=== PATIENT | female | born 1995 | race Hispanic/Latino ===

== ENCOUNTER 2016-10-26 17:55 | Observation (INO) | payer BC ==
[2016-10-26 18:09] VITALS: TEMP 97.8; O2SAT 100
[2016-10-26] MEDS ORDERED: Sodium Chloride 0.9% 1,000 ML IV STA (18:28)
[2016-10-26] MEDS ORDERED: Dextrose 5%/Lactated Ringer's 1,000 ML IV SCH (18:30)
[2016-10-26] MEDS ORDERED: DiphenhydrAMINE 50 mg/ml Inj IVP STA (18:31)
[2016-10-26] MEDS ORDERED: DiphenhydrAMINE 50 mg/ml Inj ONE (18:39)
[2016-10-26 18:52] LABS: BASO % 0.2 % (0.0-2.0); HEMATOCRIT 42.1 % (34.0-47.0); LYMPH # 0.9 K/uL (1.0-4.3); LYMPH % 7.3 % (20.0-40.0); MEAN CELL VOLUME 86.1 fl (81.0-99.0); MEAN CORPUSCULAR HEMOGLOBIN 28.2 pg (27.0-31.0); MEAN CORPUSCULAR HGB CONC 32.7 g/dL (33.0-37.0); MEAN PLATELET VOLUME 9.2 fl (7.2-11.7); MONO # 0.6 K/uL (0.0-0.8); MONO % 5.2 % (0.0-10.0); NEUT # 10.7 K/uL (1.8-7.0); NEUT % 87.3 % (50.0-75.0); PLATELET COUNT 284 K/uL (130-400); WHITE BLOOD COUNT 12.2 K/uL (4.8-10.8)
[2016-10-26 19:02] LABS: ALB/GLOB RATIO 1.5 (1.0-2.1); ALKALINE PHOSPHATASE 85 U/L (38-126); ALT/SGPT 28 U/L (9-52); AST/SGOT 45 U/L (14-36); BLOOD UREA NITROGEN 11 mg/dl (7-17); CALCIUM 9.8 mg/dL (8.4-10.2); CARBON DIOXIDE 20 mmol/L (22-30); CHLORIDE 106 mmol/L (98-107); GFR AFRICAN-AMERICAN > 60; GLUCOSE,RANDOM 84 mg/dL (65-105); LIPASE 57 U/L (23-300); MAGNESIUM 1.7 MG/DL (1.6-2.3); PHOSPHOROUS 4.5 mg/dl (2.5-4.5); SODIUM 139 mmol/l (132-148); TOTAL PROTEIN 8.4 G/DL (6.3-8.2)
[2016-10-26 19:41] LABS: NEUTROPHIL 84 % (42-75); TOTAL CELLS COUNTED 100
--- NOTE | 2016-10-26 19:55 | ED PDOC ---
HPI: Abdomen Time Seen by Provider: 10/26/16 18:15 Chief Complaint (Nursing): GI Problem Chief Complaint (Provider): GI problem History Per: Patient History/Exam Limitations: no limitations Onset/Duration Of Symptoms: Hrs (15x hours) Outside of [place] travel?: No Current Symptoms Are (Timing): Still Present Severity: Moderate Location Of Pain/Discomfort: Suprapubic Quality Of Discomfort: Cramping Associated Symptoms: Nausea, Vomiting (bilious), Diarrhea (all water) Additional Complaint(s): 21 year old female with no pertinent medical history presents to the ED with complaints of vomiting and diarrhea that started 15x hours prior to arrival. She reports that last night the last thing had to eat was an avocado roll and she woke up in the middle of the night today at 4:30am with diarrhea and intractable vomiting soon after. She describes the greenish yellow, non bloody diarrhea as all water and she has had some bilious vomiting. She is unable to tolerate any PO (including water) and has associated symptoms of lower abdominal cramping pain and lightheada. She also thinks that she passed out today, after an episode of vomiting, she lied down and didn't remember what happened when she woke up. She denies having any recent travel, sick contacts, or antibiotics. Past Medical History Reviewed: Historical Data, Nursing Documentation, Vital Signs Vital Signs: Last Vital Signs Temp 97.8 F 10/26/16 18:07 Pulse 79 10/26/16 23:36 Resp 16 10/26/16 23:36 BP 111/72 10/26/16 23:36 Pulse Ox 100 10/26/16 20:54 - Medical History PMH: No Chronic Diseases - Surgical History Surgical History: No Surg Hx - Family History Family History: States: Other - Social History Current smoker - smoking cessation education provided: No Alcohol: None Drugs: Cannabis (occasionally) - Home Medications Home Medications: Ambulatory Orders Medication Instructions Recorded Dicyclomine [Bentyl] 20 mg PO BID PRN #30 tab 10/26/16 Ondansetron ODT [Zofran ODT] 1 odt PO Q6 PRN #20 odt 10/26/16 - Allergies Allergies/Adverse Reactions: Allergies Allergy/AdvReac Type Severity Reaction Status Date / Time latex Allergy ITCHING Verified 10/26/16 18:07 Review of Systems ROS Statement: Except As Marked, All Systems Reviewed And Found Negative Cardiovascular: Positive for: Light Headedness Gastrointestinal: Positive for: Nausea, Vomiting (some bilious vomit), Abdominal Pain (lower cramping), Diarrhea (greenish yellow, all water) Physical Exam - Reviewed Nursing Documentation Reviewed: Yes Vital Signs Reviewed: Yes - Physical Exam Appears: Positive for: Non-toxic, In Acute Distress (mild gastrointestinal distress). Negative for: Well (tired appearing) Skin: Positive for: Normal Color, Warm, Dry Eye Exam: Positive for: Normal appearance ENT: Positive for: Pharynx Is (clear), Other (tacky mucous membranes) Neck: Positive for: Normal Cardiovascular/Chest: Positive for: Regular Rate, Rhythm Respiratory: Positive for: Normal Breath Sounds. Negative for: Respiratory Distress Gastrointestinal/Abdominal: Positive for: Soft, Tenderness (mild suprapubic tenderness to palpation. negative mcburneys point. otherwise soft.). Negative for: Mass, Distended, Guarding, Rebound Neurologic/Psych: Positive for: Alert, Oriented (3x) - Laboratory Results Result Diagrams: 10/26/16 18:35 10/26/16 18:35 - ECG O2 Sat by Pulse Oximetry: 100 (RA) Pulse Ox Interpretation: Normal Medical Decision Making Medical Decision Makin:15 Initial impression: 21 year old female with abdominal pain. Differential diagnoses include but are not limited to dehydration, vomiting and diarrhea. Initial plan: * CMP * lipase * magnesium * phosphorous * urine preg * udip * CBC * benadryl 25mg IVP * after LR bolus 1,000ml IV 200mls/hr * IV NS 1,000ml IV 1,000ms/hr * pepcid 20mg IVP * phenergan inj 25mg IVPB * zofran 8mg IV * accucheck * reevaluation 18:21 Patient is being placed into ED observation pending serial abdominal examination with a large IV bolus to determine patient's stability for disposition. See ED observation note for further updates. Scribe Attestation: Documented by Sheyla Camargo, acting as a scribe for Selene Echavarria MD. Provider Scribe Attestation: All medical record entries made by the Scribe were at my direction and personally dictated by me. I have reviewed the chart and agree that the record accurately reflects my personal performance of the history, physical exam, medical decision making, and the department course for this patient. I have also personally directed, reviewed, and agree with the discharge instructions and disposition. ED OBSERVATION Date of observation admission: 10/26/16 Time of observation admission: 18:21 - Observation admission statement Patient is being placed in observation because:: Need for serial abdominal examinations to determine stability for discharge. - Goals of Observation Goals of observation are:: resolution of symptoms. - Progress Note Progress Note: 10/26/16 18:35 udip: high specific gravity 80 ketones negative for leukocytes 2130 Pt feeling better. Mildly elevated WBCs, otherwise no clinically significant lab abnormalities Minimal suprapubic ttp. 2330 Tolerated PO challenge and appears more comfortable and eager to go home. DW pt findings and plan of care. Rest, fluids, very bland diet Zofran, Bentyl prescribed. Disposition - Clinical Impression Clinical Impression: Vomiting and diarrhea, Dehydration Counseled Patient/Family Regarding: Studies Performed, Diagnosis, Need For Followup, Rx Given - Disposition Disposition: Routine/Home Disposition Time: 18:20 Condition: IMPROVED
[2016-10-26 23:37] VITALS: BP 111/72; PULSE 79; RESP 16
== END 2016-10-26 23:35 | disposition home or self-care (01) ==
LOC: H.ER 17:55 → H.EROBSV 18:21
PROVIDERS: ADMIT Emergency Medicine; ATTEND Emergency Medicine
DX: E86.0 Dehydration (principal); R11.2 Nausea with vomiting, unspecified; R19.7 Diarrhea, unspecified; Z91.040 Latex allergy status
CPT/HCPCS: 80053; 81025; 82948; 83690; 83735; 84100; 85025; 96361; 96374; 96375; 99283; G0378; J1200; J2405; J2550; J7040; J7120

== ENCOUNTER 2016-11-05 18:07 | Emergency (ER) | payer BC ==
[2016-11-05 18:18] VITALS: BP 128/65; PULSE 83; RESP 20; TEMP 99.1; O2SAT 98
[2016-11-05] MEDS ORDERED: Amoxicillin-Clav 875-125 mg Tab PO STA (18:19)
[2016-11-05] MEDS ORDERED: Piperacillin/Tazobact 3.375 GM in Sodium Chloride 0.9% 100 ML IVPB STA (18:25)
[2016-11-05] MEDS ORDERED: TDAP Vaccine 0.5 mL Syr IM ONE (18:26)
[2016-11-05] MEDS ORDERED: Piperacillin/Tazobact 3.375 gm Inj IVPB ONE (18:34)
--- NOTE | 2016-11-05 18:46 | ED PDOC ---
HPI: Skin/Bite Injury Time Seen by Provider: 11/05/16 18:10 Chief Complaint (Nursing): Bite Chief Complaint (Provider): bite History Per: Patient History/Exam Limitations: no limitations Onset/Duration Of Symptoms: Hrs (earlier today ) Current Symptoms Are (Timing): Still Present Additional Complaint(s): Nathlaia Ruiz is a 21 year old female, with no previous medical history, who presents to the ED with complaints of right hand pain ongoing since this morning secondary to being bit and scratched by a cat. Patient reports pain worsening throughout the day and radiating up to her arm but denies any swelling. PMD: none provided Past Medical History Reviewed: Historical Data, Nursing Documentation, Vital Signs Vital Signs: Last Vital Signs Temp 99.1 F 11/05/16 18:14 Pulse 83 11/05/16 18:14 Resp 20 11/05/16 18:14 BP 128/65 11/05/16 18:14 Pulse Ox 98 11/05/16 19:34 - Medical History PMH: No Chronic Diseases - Surgical History Surgical History: No Surg Hx - Family History Family History: States: Unknown Family Hx - Home Medications Home Medications: Ambulatory Orders Medication Instructions Recorded Dicyclomine [Bentyl] 20 mg PO BID PRN #30 tab 10/26/16 Ondansetron ODT [Zofran ODT] 1 odt PO Q6 PRN #20 odt 10/26/16 Amoxicillin/Clavulanate [Augmentin 1 tab PO BID #14 tab 11/05/16 875 MG-125 MG] Ibuprofen [Motrin] 600 mg PO Q8 PRN #21 tab 11/05/16 - Allergies Allergies/Adverse Reactions: Allergies Allergy/AdvReac Type Severity Reaction Status Date / Time latex Allergy ITCHING Verified 10/26/16 18:07 Review of Systems ROS Statement: Except As Marked, All Systems Reviewed And Found Negative Constitutional: Negative for: Fever, Chills Musculoskeletal: Positive for: Arm Pain, Hand Pain. Negative for: Other ( swelling) Physical Exam - Reviewed Nursing Documentation Reviewed: Yes Vital Signs Reviewed: Yes - Physical Exam Appears: Positive for: Well, Non-toxic, No Acute Distress Skin: Positive for: Normal Color, Warm, Dry Cardiovascular/Chest: Positive for: Regular Rate, Rhythm Respiratory: Positive for: CNT, Normal Breath Sounds Extremity: Positive for: Normal ROM, Tenderness (index finger right hand by the MCP), Capillary Refill (< 2 seconds), Swelling (right index finger by the MCP), Other (multiple scratch suero with no warmth or streaking ). Negative for: Deformity Neurologic/Psych: Positive for: Alert, Oriented - Laboratory Results Result Diagrams: 11/05/16 18:30 11/05/16 18:30 - ECG O2 Sat by Pulse Oximetry: 98 (RA) Pulse Ox Interpretation: Normal - Progress ED Course And Treament: hand xry: neg for fx Medical Decision Making Medical Decision Making: Initial Impression: cat scratch Initial plan: * Boostrix vaccine * x-right hand * labs * zosyn 3.375mg iv * reevaluation Scribe Attestation: Documented by Geeta Razo, acting as a scribe for Hussain Goyal PA-C. Provider Scribe Attestation: All medical record entries made by the Scribe were at my direction and personally dictated by me. I have reviewed the chart and agree that the record accurately reflects my personal performance of the history, physical exam, medical decision making, and the department course for this patient. I have also personally directed, reviewed, and agree with the discharge instructions and disposition. Disposition - Clinical Impression Clinical Impression: Cat bite - Patient ED Disposition Is Patient to be Admitted: No - Disposition Disposition: Routine/Home Disposition Time: 21:17 Condition: FAIR Prescriptions: Amoxicillin/Clavulanate [Augmentin 875 MG-125 MG] 1 tab PO BID #14 tab Ibuprofen [Motrin] 600 mg PO Q8 PRN #21 tab PRN Reason: Pain, Moderate (4-7) Instructions: Animal Bite (ED) Forms: [facility] ED School/Work Excuse
[2016-11-05 18:52] LABS: BASO # 0.1 K/uL (0.0-0.2); BASO % 0.4 % (0.0-2.0); EOS # 0.4 K/uL (0.0-0.7); EOS % 3.3 % (0.0-4.0); HEMATOCRIT 40.3 % (34.0-47.0); LYMPH # 1.5 K/uL (1.0-4.3); LYMPH % 11.3 % (20.0-40.0); MEAN CELL VOLUME 85.3 fl (81.0-99.0); MEAN CORPUSCULAR HGB CONC 32.8 g/dL (33.0-37.0); MEAN PLATELET VOLUME 9.3 fl (7.2-11.7); MONO # 0.6 K/uL (0.0-0.8); NEUT # 10.3 K/uL (1.8-7.0); NRBC % 0.1 % (0.0-0.0); RED CELL DISTRIBUTION WIDTH 13.8 % (11.5-14.5); WHITE BLOOD COUNT 12.9 K/uL (4.8-10.8)
[2016-11-05 19:11] LABS: ALB/GLOB RATIO 1.4 (1.0-2.1); ALKALINE PHOSPHATASE 89 U/L (38-126); ALT/SGPT 68 U/L (9-52); AST/SGOT 46 U/L (14-36); BILIRUBIN,TOTAL 0.3 mg/dl (0.2-1.3); BLOOD UREA NITROGEN 6 mg/dl (7-17); CALCIUM 9.3 mg/dL (8.4-10.2); CARBON DIOXIDE 25 mmol/L (22-30); CHLORIDE 102 mmol/L (98-107); GFR AFRICAN-AMERICAN > 60; GLUCOSE,RANDOM 114 mg/dL (65-105); POTASSIUM 3.9 MMOL/L (3.6-5.0); SODIUM 140 mmol/l (132-148); TOTAL PROTEIN 7.7 G/DL (6.3-8.2)
--- NOTE | 2016-11-06 14:18 | RAD ---
PROCEDURE: Right Hand Radiographs. HISTORY: hand injury COMPARISON: None available. FINDINGS: BONES: No acute displaced fracture. JOINTS: No dislocation. SOFT TISSUES: Unremarkable. No evidence of radiopaque foreign body. OTHER FINDINGS: None. IMPRESSION: No acute displaced fracture, dislocation, or significant joint effusion identified. If symptoms persist, or if there is continued clinical concern, x-ray follow-up in 7-10 days should be considered.
== END 2016-11-05 21:21 | disposition home or self-care (01) ==
LOC: H.ER 18:07
DX: S69.91XA Unspecified injury of right wrist, hand and finger(s), initial encounter (principal); W55.03XA Scratched by cat, initial encounter; Y92.89 Other specified places as the place of occurrence of the external cause
CPT/HCPCS: 73130; 80053; 85025; 90471; 90715; 96365; 99282; J2543

== ENCOUNTER 2017-06-12 05:46 | Emergency (ER) | payer BC ==
[2017-06-12 06:09] VITALS: BMI 24.3
[2017-06-12 06:12] VITALS: RESP 18; O2SAT 98
[2017-06-12] MEDS ORDERED: Sodium Chloride 0.9% 1,000 ML IV STA (07:20)
--- NOTE | 2017-06-12 07:25 | ED PDOC ---
HPI: Abdomen Time Seen by Provider: 06/12/17 06:20 Chief Complaint (Nursing): Abdominal Pain Chief Complaint (Provider): Abdominal pain History Per: Patient History/Exam Limitations: no limitations Onset/Duration Of Symptoms: Hrs Outside of [place] travel?: No Current Symptoms Are (Timing): Still Present Location Of Pain/Discomfort: Epigastric Quality Of Discomfort: "Pain" Associated Symptoms: Nausea, Vomiting, Diarrhea Additional Complaint(s): 21yo female with no past medical history, presents to ED with complaints of epigastric and mid abdominal pain associated with nausea, vomiting and diarrhea since last night. She denies associated fever, urinary symptoms, bloody stool. She has no other complaints. Abnormal Vaginal Bleeding: No Past Medical History Reviewed: Historical Data, Nursing Documentation, Vital Signs Vital Signs: Last Vital Signs Temp 98.6 F 06/12/17 06:09 Pulse 105 H 06/12/17 06:09 Resp 18 06/12/17 06:09 BP 140/81 06/12/17 06:09 Pulse Ox 98 06/12/17 10:17 - Medical History PMH: No Chronic Diseases - Surgical History Surgical History: No Surg Hx - Family History Family History: States: No Known Family Hx, Unknown Family Hx - Home Medications Home Medications: Ambulatory Orders Medication Instructions Recorded Dicyclomine [Bentyl] 20 mg PO BID PRN #30 tab 10/26/16 Ondansetron ODT [Zofran ODT] 1 odt PO Q6 PRN #20 odt 10/26/16 Amoxicillin/Clavulanate [Augmentin 1 tab PO BID #14 tab 11/05/16 875 MG-125 MG] Ibuprofen [Motrin] 600 mg PO Q8 PRN #21 tab 11/05/16 Famotidine [Pepcid] 20 mg PO Q12 #20 tab 06/12/17 Ondansetron [Zofran] 4 mg PO Q8H #10 tab 06/12/17 - Allergies Allergies/Adverse Reactions: Allergies Allergy/AdvReac Type Severity Reaction Status Date / Time latex Allergy ITCHING Verified 06/12/17 06:09 Review of Systems ROS Statement: Except As Marked, All Systems Reviewed And Found Negative Constitutional: Negative for: Fever, Chills Gastrointestinal: Positive for: Nausea, Vomiting, Abdominal Pain, Diarrhea. Negative for: Hematochezia Genitourinary Female: Negative for: Dysuria, Frequency, Hematuria Physical Exam - Reviewed Nursing Documentation Reviewed: Yes Vital Signs Reviewed: Yes - Physical Exam Appears: Positive for: Non-toxic, No Acute Distress Head Exam: Positive for: ATRAUMATIC, NORMAL INSPECTION, NORMOCEPHALIC Skin: Positive for: Normal Color Eye Exam: Positive for: Normal appearance Neck: Positive for: Supple Cardiovascular/Chest: Positive for: Regular Rate, Rhythm Respiratory: Positive for: Normal Breath Sounds. Negative for: Respiratory Distress Gastrointestinal/Abdominal: Positive for: Soft, Tenderness (epigastric tenderness). Negative for: Guarding, Rebound Back: Positive for: Normal Inspection. Negative for: L CVA Tenderness, R CVA Tenderness Neurologic/Psych: Positive for: Alert, Oriented - Laboratory Results Result Diagrams: 06/12/17 07:41 06/12/17 07:41 - ECG O2 Sat by Pulse Oximetry: 98 (RA) Pulse Ox Interpretation: Normal Medical Decision Making Medical Decision Making: Impression: 21yo female with abdominal pain Plan: -- Labs -- IV Fluids -- Bentyl 10mg PO -- Zofran 4mg IVP -- Pepcid 20mg IVP Time: 1017 Patient reports feeling much better and is stable for discharge home. Instructed to follow up with PCP in 1-2 days. Scribe Attestation: Documented by Aiyana Bergman, acting as a scribe for Caden Maloney MD. Provider Scribe Attestation: All medical record entries made by the Scribe were at my direction and personally dictated by me. I have reviewed the chart and agree that the record accurately reflects my personal performance of the history, physical exam, medical decision making, and the department course for this patient. I have also personally directed, reviewed, and agree with the discharge instructions and disposition. Disposition - Clinical Impression Clinical Impression: Gastroenteritis - Patient ED Disposition Is Patient to be Admitted: No Counseled Patient/Family Regarding: Studies Performed, Diagnosis, Need For Followup, Rx Given - Disposition Referrals: [facility] [Outside] Disposition: Routine/Home Disposition Time: 10:24 Condition: FAIR Prescriptions: Famotidine [Pepcid] 20 mg PO Q12 #20 tab Ondansetron [Zofran] 4 mg PO Q8H #10 tab Instructions: Gastroenteritis (ED) Forms: [employer] (Indonesian)
[2017-06-12 08:00] LABS: BASO # 0.1 K/uL (0.0-0.2); BASO % 0.6 % (0.0-2.0); EOS % 0.1 % (0.0-4.0); HEMOGLOBIN 13.8 g/dL (12.0-16.0); LYMPH # 0.8 K/uL (1.0-4.3); LYMPH % 7.3 % (20.0-40.0); MEAN CELL VOLUME 84.4 fl (81.0-99.0); MEAN CORPUSCULAR HEMOGLOBIN 27.9 pg (27.0-31.0); MEAN CORPUSCULAR HGB CONC 33.1 g/dL (33.0-37.0); MEAN PLATELET VOLUME 8.6 fl (7.2-11.7); MONO # 0.8 K/uL (0.0-0.8); MONO % 6.9 % (0.0-10.0); NEUT # 9.5 K/uL (1.8-7.0); NEUT % 85.1 % (50.0-75.0); NRBC % 0.2 % (0.0-0.0); PLATELET COUNT 273 K/uL (130-400); RBC 4.95 Mil/uL (3.80-5.20); RED CELL DISTRIBUTION WIDTH 13.9 % (11.5-14.5); WHITE BLOOD COUNT 11.1 K/uL (4.8-10.8)
[2017-06-12 08:40] LABS: ALB/GLOB RATIO 1.3 (1.0-2.1); ALBUMIN 4.4 g/dL (3.5-5.0); ALT/SGPT 25 U/L (9-52); AST/SGOT 23 U/L (14-36); CALCIUM 9.6 mg/dL (8.4-10.2); GFR AFRICAN-AMERICAN > 60; GFR NON-AFRICAN AMERICAN > 60; LIPASE 44 U/L (23-300)
[2017-06-12 08:47] LABS: BLOOD UREA NITROGEN 9 mg/dl (7-17)
[2017-06-12 11:52] LABS: ANISOCYTOSIS SLIGHT; LYMPHOCYTE 11 % (20-50); MONOCYTE 6 % (0-10); NEUTROPHIL 83 % (42-75); PLATELET ESTIMATE NORMAL (NORMAL); TOTAL CELLS COUNTED 100
[2017-06-12 11:53] LABS: LARGE PLATELETS PRESENT
[2017-06-12 12:18] VITALS: BP 110/68; PULSE 88; TEMP 98
== END 2017-06-12 10:30 | disposition home or self-care (01) ==
LOC: H.ER 05:46
DX: K52.9 Noninfective gastroenteritis and colitis, unspecified (principal)
CPT/HCPCS: 80053; 81025; 83690; 85025; 96361; 96374; 96375; 99282; J2405; J7040

== ENCOUNTER 2017-06-15 02:25 | Emergency (ER) | payer BC ==
[2017-06-15 02:25] VITALS: BMI 24.3
[2017-06-15 02:39] VITALS: BP 133/84; PULSE 78; RESP 17; TEMP 97.5; O2SAT 96
[2017-06-15] MEDS ORDERED: Sodium Chloride 0.9% 1,000 ML IV STA (02:49)
[2017-06-15 03:29] LABS: SQUAMOUS EPITHIAL 20 /hpf (0-5); URINE BACTERIA OCC (<OCC); URINE BILIRUBIN NEGATIVE (NEGATIVE); URINE BLOOD NEGATIVE (NEGATIVE); URINE CLARITY CLOUDY (Clear); URINE COLOR YELLOW (YELLOW); URINE GLUCOSE (UA) NEG (Normal); URINE HYALINE CAST 0-2 /hpf (0-2); URINE LEUKOCYTE ESTERASE SMALL Leu/uL (Negative); URINE NITRATE NEGATIVE (NEGATIVE); URINE PROTEIN NEGATIVE (NEGATIVE); URINE UROBILINOGEN 0.2-1.0 mg/dL (0.2-1.0)
[2017-06-15 03:30] LABS: BASO % 0.3 % (0.0-2.0); EOS # 0.1 K/uL (0.0-0.7); EOS % 0.9 % (0.0-4.0); HEMOGLOBIN 14.1 g/dL (12.0-16.0); LYMPH # 1.6 K/uL (1.0-4.3); LYMPH % 17.9 % (20.0-40.0); MEAN CELL VOLUME 84.6 fl (81.0-99.0); MEAN CORPUSCULAR HEMOGLOBIN 28.4 pg (27.0-31.0); MEAN CORPUSCULAR HGB CONC 33.6 g/dL (33.0-37.0); MONO # 0.9 K/uL (0.0-0.8); NEUT # 6.4 K/uL (1.8-7.0); NEUT % 70.9 % (50.0-75.0); NRBC % 0.2 % (0.0-0.0); RBC 4.95 Mil/uL (3.80-5.20); RED CELL DISTRIBUTION WIDTH 14.2 % (11.5-14.5)
[2017-06-15 03:36] LABS: ALB/GLOB RATIO 1.3 (1.0-2.1); ALBUMIN 4.3 g/dL (3.5-5.0); ALT/SGPT 30 U/L (9-52); AST/SGOT 29 U/L (14-36); BLOOD UREA NITROGEN 7 mg/dl (7-17); CALCIUM 9.4 mg/dL (8.4-10.2); GFR AFRICAN-AMERICAN > 60; GFR NON-AFRICAN AMERICAN > 60; LIPASE 63 U/L (23-300); MAGNESIUM 1.8 MG/DL (1.6-2.3)
--- NOTE | 2017-06-15 04:13 | ED PDOC ---
HPI: Abdomen Time Seen by Provider: 06/15/17 02:49 Chief Complaint (Nursing): Abdominal Pain Chief Complaint (Provider): abdominal pain History Per: Patient (21 y/o female here for evaluation of abdominal/vomiting today after eating pizza. Patient states illness began 06/11/2017 with vomiting/ abdominal pain and was seen in ED with improvement with medications. Has had light diet until today. No h/o surgeries.) Past Medical History Reviewed: Historical Data, Nursing Documentation, Vital Signs Vital Signs: Last Vital Signs Temp 97.5 F L 06/15/17 02:34 Pulse 78 06/15/17 02:34 Resp 17 06/15/17 02:34 BP 133/84 06/15/17 02:34 Pulse Ox 96 06/15/17 02:34 - Family History Family History: States: Unknown Family Hx - Home Medications Home Medications: Ambulatory Orders Medication Instructions Recorded Dicyclomine [Bentyl] 20 mg PO BID PRN #30 tab 10/26/16 Ondansetron ODT [Zofran ODT] 1 odt PO Q6 PRN #20 odt 10/26/16 Amoxicillin/Clavulanate [Augmentin 1 tab PO BID #14 tab 11/05/16 875 MG-125 MG] Ibuprofen [Motrin] 600 mg PO Q8 PRN #21 tab 11/05/16 Famotidine [Pepcid] 20 mg PO Q12 #20 tab 06/12/17 Ondansetron [Zofran] 4 mg PO Q8H #10 tab 06/12/17 Omeprazole Magnesium [Prilosec Otc] 20 mg PO DAILY #7 tablet. 06/15/17 Ondansetron ODT [Zofran ODT] 4 mg PO Q8 PRN #8 odt 06/15/17 - Allergies Allergies/Adverse Reactions: Allergies Allergy/AdvReac Type Severity Reaction Status Date / Time latex Allergy ITCHING Verified 06/12/17 06:09 Review of Systems ROS Statement: Except As Marked, All Systems Reviewed And Found Negative Gastrointestinal: Positive for: Abdominal Pain Physical Exam - Reviewed Nursing Documentation Reviewed: Yes Vital Signs Reviewed: Yes - Physical Exam Appears: Positive for: Well, Non-toxic, No Acute Distress Head Exam: Positive for: ATRAUMATIC, NORMAL INSPECTION, NORMOCEPHALIC Skin: Positive for: Normal Color, Warm, DRY Eye Exam: Positive for: EOMI, Normal appearance, PERRL ENT: Positive for: Normal ENT Inspection Neck: Positive for: Normal, Painless ROM Cardiovascular/Chest: Positive for: Regular Rate, Rhythm Respiratory: Positive for: CNT, Normal Breath Sounds Gastrointestinal/Abdominal: Positive for: Normal Exam, Bowel Sounds, Soft, Tenderness (soft abdomen/generalized tenderness.) Back: Positive for: Normal Inspection Extremity: Positive for: Normal ROM Neurologic/Psych: Positive for: Alert, Oriented - Laboratory Results Result Diagrams: 06/15/17 03:23 06/15/17 03:23 Urine POC: Negative Urine dip results: Negative for: Leukocyte Esterase, Blood, Nitrate, Ketones, Glucose, Bilirubin - ECG O2 Sat by Pulse Oximetry: 96 - Progress ED Course And Treament: pepcid 20 mg iv x 1 dose zofran 4mg iv x 1 dose NS 1 liter wide open Patient re-examined. Nontender abdomen. Feels improved. Advised regarding diet precautions this week. Disposition - Clinical Impression Clinical Impression: Gastritis - Patient ED Disposition Is Patient to be Admitted: No - Disposition Referrals: Ranjith Nolen MD [Staff Provider] - Disposition: Routine/Home Disposition Time: 04:15 Condition: FAIR Prescriptions: Omeprazole Magnesium [Prilosec Otc] 20 mg PO DAILY #7 tablet. Ondansetron ODT [Zofran ODT] 4 mg PO Q8 PRN #8 odt PRN Reason: Nausea/Vomiting Forms: [facility] (Libyan)
[2017-06-15] MEDS ORDERED: Alum-Mag Hydrox-Simethicone Susp (30 mL) PO STA (04:29)
[2017-06-15] MEDS ORDERED: Alum-Mag Hydrox-Simethicone Susp (30 mL) ONE (04:44)
== END 2017-06-15 05:16 | disposition home or self-care (01) ==
LOC: H.ER 02:25
DX: K29.70 Gastritis, unspecified, without bleeding (principal)
CPT/HCPCS: 80053; 81003; 81025; 83690; 83735; 85025; 87086; 96374; 96375; 96376; 99283; J2405; J7040

== ENCOUNTER 2017-11-07 03:20 | Emergency (ER) | payer BC ==
[2017-11-07 03:20] VITALS: BMI 24.3
[2017-11-07 03:41] VITALS: O2SAT 99
--- NOTE | 2017-11-07 03:49 | ED PDOC ---
"HPI: Abdomen Time Seen by Provider: 11/07/17 03:26 Chief Complaint (Nursing): Abdominal Pain History Per: Patient History/Exam Limitations: no limitations Onset/Duration Of Symptoms: Hrs Outside of [place] travel?: No Current Symptoms Are (Timing): Still Present Location Of Pain/Discomfort: Periumbilical Quality Of Discomfort: Dull Associated Symptoms: Nausea, Loss Of Appetite. denies: Fever, Chills, Vomiting , Diarrhea Additional Complaint(s): No PMHx presenting with abdominal pain, states she had lack of appetite all day , started with periumbilical pain around 8PM, was initially mild, at 11PM pain worsened, was accompanied by nausea but no vomiting. Normal stools, no urinary symptoms, no vaginal discharge. No fevers. Last PO intake prior to arrival ( water). PMD: None Past Medical History Reviewed: Historical Data, Nursing Documentation, Vital Signs Vital Signs: Last Vital Signs Temp 97.7 F 11/07/17 03:38 Pulse 72 11/07/17 03:38 Resp 16 11/07/17 03:38 BP 128/81 11/07/17 03:38 Pulse Ox 99 11/07/17 06:44 - Medical History PMH: No Chronic Diseases - Family History Family History: States: Unknown Family Hx - Home Medications Home Medications: Ambulatory Orders Medication Instructions Recorded Dicyclomine [Bentyl] 20 mg PO BID PRN #30 tab 10/26/16 Ondansetron ODT [Zofran ODT] 1 odt PO Q6 PRN #20 odt 10/26/16 Amoxicillin/Clavulanate [Augmentin 1 tab PO BID #14 tab 11/05/16 875 MG-125 MG] Ibuprofen [Motrin] 600 mg PO Q8 PRN #21 tab 11/05/16 Famotidine [Pepcid] 20 mg PO Q12 #20 tab 06/12/17 Ondansetron [Zofran] 4 mg PO Q8H #10 tab 06/12/17 Omeprazole Magnesium [Prilosec Otc] 20 mg PO DAILY #7 tablet. 06/15/17 Ondansetron ODT [Zofran ODT] 4 mg PO Q8 PRN #8 odt 06/15/17 - Allergies Allergies/Adverse Reactions: Allergies Allergy/AdvReac Type Severity Reaction Status Date / Time latex Allergy ITCHING Verified 06/12/17 06:09 Review of Systems ROS Statement: Except As Marked, All Systems Reviewed And Found Negative Gastrointestinal: Positive for: Nausea, Abdominal Pain Physical Exam - Reviewed Nursing Documentation Reviewed: Yes Vital Signs Reviewed: Yes - Physical Exam Appears: Positive for: Non-toxic, No Acute Distress, Uncomfortable Head Exam: Positive for: ATRAUMATIC, NORMAL INSPECTION, NORMOCEPHALIC Skin: Positive for: Normal Color, Warm, DRY Eye Exam: Positive for: EOMI, Normal appearance, PERRL ENT: Positive for: Normal ENT Inspection Neck: Positive for: Normal, Painless ROM Cardiovascular/Chest: Positive for: Regular Rate, Rhythm Respiratory: Positive for: CNT, Normal Breath Sounds Gastrointestinal/Abdominal: Positive for: Bowel Sounds, Soft, Tenderness (arya- umbilical, RLQ). Negative for: Mass, Distended, Guarding, Rebound Back: Positive for: Normal Inspection Extremity: Positive for: Normal ROM Neurologic/Psych: Positive for: Alert, Oriented - Laboratory Results Result Diagrams: 11/07/17 04:16 11/07/17 04:16 - ECG O2 Sat by Pulse Oximetry: 99 Pulse Ox Interpretation: Normal Medical Decision Making Medical Decision MakinPM A/P: No PMHx presenting with abdominal pain -based on location of pain, possibly appendicitis v. mesenteric adenitis v. colitis v. UTI -will get labs, give fluids, toradol -well get CT to r/o surgical cause -not concerned for [employer] APPRAISER pathology at this time given periumbilical location of pain at maximum 630 CLINICAL HISTORY: 22 years old, female; Pain; Abdominal pain; Localized; Right lower quadrant (rlq ); Additional info: Arya-umbilical, rlq pain TECHNIQUE: Axial computed tomography images of the abdomen and pelvis with intravenous contrast. All CT scans at this facility use one or more dose reduction techniques, viz.: automated exposure control; ma/kV adjustment per patient size (including targeted exams where dose is matched to indication; i.e. head); or iterative reconstruction technique. CONTRAST: 500 ml of [id number] administered intravenously. COMPARISON: No relevant prior studies available. FINDINGS: Lower thorax: No acute findings. ABDOMEN: Liver: Normal. No mass. Gallbladder and bile ducts: Normal. No calcified stones. No ductal dilation. Pancreas: Normal. No ductal dilation. Spleen: Normal. No splenomegaly. Adrenals: Normal. No mass. Kidneys and ureters: Normal. No hydronephrosis. Stomach and bowel: Normal. No obstruction. No mucosal thickening. Appendix: Normal appendix. PELVIS: Bladder: Unremarkable as visualized. Reproductive: Unremarkable as visualized. ABDOMEN and PELVIS: NANCY DELUCA | Preliminary Radiology Report NATURAL RESOURCE MANAGER (QA) DISCREPANCY? If there is a discrepancy between the preliminary and final interpretation, please notify ad via [email or web address]. If you do not have access to our QA portal, call our QA team at [phone] CONFIDENTIALITY STATEMENT This report is intended only for the use of the referring physician, and only in accordance with law, If you received this in error, call [phone] Page 2 of 2 Intraperitoneal space: Normal. No free air. No significant fluid collection. Bones/joints: No acute fracture. No dislocation. Soft tissues: Unremarkable. Vasculature: Normal. No abdominal aortic aneurysm. Lymph nodes: Normal. No enlarged lymph nodes. IMPRESSION: No definite acute abdominal pathologic finding. (Of note, radiology equipment servicer gave appropriate 90mL of omnipaque, not 500mL that was written) Patient still in pain, protonix ordered without significant relief, 2 morphine given and pelvic exam performed. Patient does not have insertive intercourse ( states she is a lesbian) and was unable to tolerate speculum exam, digital manual exam reproduced some tenderness that the patient was experiencing. Will order trans-abdominal ultrasound to r/o torsion or other acute peliv pathology possibly missed on CT. Explained to patient results and plan from now and explained to patient that we may not come to a conclusion on this ER visit as to the cause of her pain. Will endorse to Dr. Tran pending ultrasound and re- eval post-test. Disposition - Clinical Impression Clinical Impression: Abdominal pain - Patient ED Disposition Is Patient to be Admitted: Transfer of Care - Disposition Disposition: Transfer of Care Disposition Time: 07:00 Condition: STABLE Forms: [facility] (Armenian) Patient Signed Over To: James Tran III Handoff Comments: pending ultrasound"
[2017-11-07] MEDS: Sodium Chloride 0.9% 1,000 ML IV STA (04:17)
[2017-11-07 04:25] LABS: SQUAMOUS EPITHIAL 1 /hpf (0-5); URINE BILIRUBIN NEGATIVE (NEGATIVE); URINE BLOOD MODERATE (NEGATIVE); URINE CLARITY SLIGHTY-CLOUDY (Clear); URINE COLOR YELLOW (YELLOW); URINE GLUCOSE (UA) NEG (Normal); URINE LEUKOCYTE ESTERASE NEG Leu/uL (Negative); URINE PROTEIN NEGATIVE (NEGATIVE); URINE UROBILINOGEN 0.2-1.0 mg/dL (0.2-1.0)
[2017-11-07 04:28] LABS: BASO % 0.4 % (0.0-2.0); EOS % 0.5 % (0.0-4.0); HEMOGLOBIN 13.3 g/dL (12.0-16.0); LYMPH # 1.6 K/uL (1.0-4.3); LYMPH % 17.8 % (20.0-40.0); MEAN CELL VOLUME 83.3 fl (81.0-99.0); MEAN CORPUSCULAR HEMOGLOBIN 28.4 pg (27.0-31.0); MEAN CORPUSCULAR HGB CONC 34.2 g/dL (33.0-37.0); MEAN PLATELET VOLUME 9.8 fl (7.2-11.7); MONO # 0.6 K/uL (0.0-0.8); MONO % 6.3 % (0.0-10.0); NEUT # 6.7 K/uL (1.8-7.0); NRBC % 0.1 % (0.0-0.0); RBC 4.68 Mil/uL (3.80-5.20); RED CELL DISTRIBUTION WIDTH 14.1 % (11.5-14.5)
[2017-11-07 04:34] LABS: ALB/GLOB RATIO 1.2 (1.0-2.1); ALBUMIN 4.4 g/dL (3.5-5.0); ALT/SGPT 26 U/L (9-52); AST/SGOT 25 U/L (14-36); BLOOD UREA NITROGEN 9 mg/dl (7-17); CALCIUM 9.3 mg/dL (8.4-10.2); GFR AFRICAN-AMERICAN > 60; GFR NON-AFRICAN AMERICAN > 60; LIPASE 44 U/L (23-300)
[2017-11-07] MEDS ORDERED: Iohexol 300 100 ML IJ ONE (04:36)
[2017-11-07] MEDS ORDERED: Sodium Chloride 0.9% 50 ML IV ONE (04:37)
--- NOTE | 2017-11-07 07:06 | ED PDOC ---
- Laboratory Results Result Diagrams: 11/07/17 04:16 11/07/17 04:16 - ECG O2 Sat by Pulse Oximetry: 99 Medical Decision Making Medical Decision Making: received 7am pending transabd US abd CT abd showed adnexal cysts Accession No. : [id number] Patient Name / ID : YOSI CRUZ / [id number] Exam Date : 11/07/2017 04:38:12 ( Approved ) Study Comment : Sex / Age : F / 22Y Creator : Rosaura Esparza Dictator : Rosaura Esparza Top Lift Trimmer : Associate Store Manager : Rosaura Esparza Approver2 : Report Date : 11/07/2017 08:21:38 My Comment : PROCEDURE: CT Abdomen and Pelvis with contrast HISTORY: arya-umbilical, RLQ pain COMPARISON: None. TECHNIQUE: Contrast dose: 90 mL Omnipaque 300 Radiation dose: Total exam DLP = 373 mGy-cm. This CT exam was performed using one or more of the following dose reduction techniques: Automated exposure control, adjustment of the mA and/or kV according to patient size, and/or use of iterative reconstruction technique. FINDINGS: LOWER THORAX: Unremarkable. LIVER: Unremarkable. No gross lesion or ductal dilatation. GALLBLADDER AND BILE DUCTS: Unremarkable. PANCREAS: Unremarkable. No gross lesion or ductal dilatation. SPLEEN: Unremarkable. ADRENALS: Unremarkable. No mass. KIDNEYS AND URETERS: Unremarkable. No hydronephrosis. No solid mass. VASCULATURE: Unremarkable. No aortic aneurysm. BOWEL: Unremarkable. No obstruction. No gross mural thickening. APPENDIX: Normal appendix. PERITONEUM: Unremarkable. No free fluid. No free air. LYMPH NODES: Unremarkable. No enlarged lymph nodes. BLADDER: Unremarkable. REPRODUCTIVE: Bilateral adnexal hypodensities right greater than left noted ovarian physiological cysts are believe most consistent with this. BONES: No acute fracture. OTHER FINDINGS: Minimal free fluid in the pelvis suggested IMPRESSION: Bilateral adnexal hypodensities -right greater than left-compatible with physical logic ovarian cysts. Minimal free fluid in the pelvis. In this 22- year-old female, if further evaluation is needed consider pelvic ultrasound with transvaginal technique if clinically appropriate. Additional findings noted in this impression are changes to the (preliminary interpretation) provided by [facility]. Comments: Study marked for PA review. Accession No. : [id number] Patient Name / ID : YOSI CRUZ / [id number] Exam Date : 11/07/2017 08:13:56 ( Approved ) Study Comment : Sex / Age : F / 22Y Creator : Rosaura Esparza Dictator : Rosaura Esparza Top Lift Trimmer : Associate Store Manager : Rosaura Esparza Approver2 : Report Date : 11/07/2017 08:54:24 My Comment : This report is currently processing and HAS NOT BEEN OFFICIALLY SIGNED BY THE PHYSICIAN - ESTIMATED TIME OF APPROVAL IS 11/07/2017 09:00. HISTORY: lower abdominal pain, r/o torsion COMPARISON: None available. TECHNIQUE: Transabdominal FINDINGS: UTERUS: Measures 8.4 x 3.9 x 3.1 cm. Normal in size and appearance. No fibroid or other mass lesion seen. ENDOMETRIUM: Measures 1.9 mm in diameter. Unremarkable. CERVIX: No cervical abnormality identified. RIGHT OVARY: Measures 2.8 x 3.8 x 1.7 cm. No solid mass. Normal flow. LEFT OVARY: Measures 2.8 x 2.9 x 1.8 cm. No solid mass. Normal flow. FREE FLUID: No significant free fluid noted. OTHER FINDINGS: None. IMPRESSION: Unremarkable pelvic ultrasound. 845a on re-eval patient improved, denies pain Results explained, followup with PMD/ [facility], Rx naprosyn Disposition Counseled Patient/Family Regarding: Studies Performed, Diagnosis, Need For Followup, Rx Given - Clinical Impression Clinical Impression: Abdominal pain, Ovarian cyst, Pelvic pain - POA Present On Arrival: None - Disposition Disposition: Routine/Home Disposition Time: 08:57 Condition: STABLE Additional Instructions: See [facility] doctor for further testing. Return to ER for any worse or new symptoms. Take naprosyn as directed for pain. NANCY DELUCA, thank you for letting us take care of you today. Your provider was James Tran III, DO and you were treated for ABDOMINAL PAIN. The emergency medical care you received today was directed at your acute symptoms. If you were prescribed any medication, please fill it and take as directed. It may take several days for your symptoms to resolve. Return to the Emergency Department if your symptoms worsen, do not improve, or if you have any other problems. Please contact your doctor or call one of the physicians/clinics you have been referred to that are listed on the Patient Visit Information form that is included in your discharge packet. Bring any paperwork you were given at discharge with you along with any medications you are taking to your follow up visit. Our treatment cannot replace ongoing medical care by a primary care provider outside of the emergency department. Thank you for allowing the [facility] team to be part of your care today. If you had an X-Ray or CT scan: A Radiologist will review the ED reading if any change in treatment is needed we will contact you. If you had a blood, urine, or wound culture: It will take several days for the results, if any change in treatment is needed we will contact you. Prescriptions: Naproxen [Naprosyn] 500 mg PO BID PRN #14 tablet PRN Reason: Pain, Moderate (4-7) Instructions: Ovarian Cysts, Acute Pelvic Pain (DC) Forms: [employer] (German)
--- NOTE | 2017-11-07 08:23 | CT ---
PROCEDURE: CT Abdomen and Pelvis with contrast HISTORY: arya-umbilical, RLQ pain COMPARISON: None. TECHNIQUE: Contrast dose: 90 mL Omnipaque 300 Radiation dose: Total exam DLP = 373 mGy-cm. This CT exam was performed using one or more of the following dose reduction techniques: Automated exposure control, adjustment of the mA and/or kV according to patient size, and/or use of iterative reconstruction technique. FINDINGS: LOWER THORAX: Unremarkable. LIVER: Unremarkable. No gross lesion or ductal dilatation. GALLBLADDER AND BILE DUCTS: Unremarkable. PANCREAS: Unremarkable. No gross lesion or ductal dilatation. SPLEEN: Unremarkable. ADRENALS: Unremarkable. No mass. KIDNEYS AND URETERS: Unremarkable. No hydronephrosis. No solid mass. VASCULATURE: Unremarkable. No aortic aneurysm. BOWEL: Unremarkable. No obstruction. No gross mural thickening. APPENDIX: Normal appendix. PERITONEUM: Unremarkable. No free fluid. No free air. LYMPH NODES: Unremarkable. No enlarged lymph nodes. BLADDER: Unremarkable. REPRODUCTIVE: Bilateral adnexal hypodensities right greater than left noted ovarian physiological cysts are believe most consistent with this. BONES: No acute fracture. OTHER FINDINGS: Minimal free fluid in the pelvis suggested IMPRESSION: Bilateral adnexal hypodensities -right greater than left-compatible with physical logic ovarian cysts. Minimal free fluid in the pelvis. In this 22-year-old female, if further evaluation is needed consider pelvic ultrasound with transvaginal technique if clinically appropriate. Additional findings noted in this impression are changes to the (preliminary interpretation) provided by [facility]. Comments: Study marked for PA review.
--- NOTE | 2017-11-07 08:55 | US ---
HISTORY: lower abdominal pain, r/o torsion COMPARISON: None available. TECHNIQUE: Transabdominal FINDINGS: UTERUS: Measures 8.4 x 3.9 x 3.1 cm. Normal in size and appearance. No fibroid or other mass lesion seen. ENDOMETRIUM: Measures 1.9 mm in diameter. Unremarkable. CERVIX: No cervical abnormality identified. RIGHT OVARY: Measures 2.8 x 3.8 x 1.7 cm. No solid mass. Normal flow. LEFT OVARY: Measures 2.8 x 2.9 x 1.8 cm. No solid mass. Normal flow. FREE FLUID: No significant free fluid noted. OTHER FINDINGS: None. IMPRESSION: Unremarkable pelvic ultrasound.
[2017-11-07 10:19] VITALS: BP 138/60; PULSE 68; RESP 17; TEMP 97.6
== END 2017-11-07 10:10 | disposition home or self-care (01) ==
LOC: H.ER 03:20
DX: R10.31 Right lower quadrant pain (principal); N83.201 Unspecified ovarian cyst, right side
CPT/HCPCS: 74177; 76857; 80053; 81003; 81025; 83605; 83690; 85025; 86850; 86900; 87040; 87086; 96374; 96375; 99283; C9113; J1885; J2270; J2405; J2765; J7030; Q9967

== ENCOUNTER 2017-11-08 01:43 | Emergency (ER) | payer BC ==
[2017-11-08 01:44] VITALS: BMI 24.3
[2017-11-08 02:09] VITALS: O2SAT 100
[2017-11-08] MEDS ORDERED: Famotidine 20mg/50ml Premix IVPB STA (02:45)
[2017-11-08] MEDS ORDERED: Famotidine 20mg/50ml 20 MG/50 ML BAG IVPB ONE (03:11)
[2017-11-08 03:35] LABS: BASO % 0.7 % (0.0-2.0); EOS # 0.3 K/uL (0.0-0.7); EOS % 5.3 % (0.0-4.0); HEMOGLOBIN 12.9 g/dL (12.0-16.0); LYMPH % 32.3 % (20.0-40.0); MEAN CELL VOLUME 84.5 fl (81.0-99.0); MEAN CORPUSCULAR HEMOGLOBIN 28.4 pg (27.0-31.0); MEAN CORPUSCULAR HGB CONC 33.6 g/dL (33.0-37.0); MEAN PLATELET VOLUME 9.4 fl (7.2-11.7); MONO # 0.6 K/uL (0.0-0.8); MONO % 9.5 % (0.0-10.0); NEUT # 3.2 K/uL (1.8-7.0); NEUT % 52.2 % (50.0-75.0); NRBC % 0.1 % (0.0-0.0); RBC 4.54 Mil/uL (3.80-5.20); RED CELL DISTRIBUTION WIDTH 14.3 % (11.5-14.5); WHITE BLOOD COUNT 6.2 K/uL (4.8-10.8)
[2017-11-08 03:47] LABS: ALB/GLOB RATIO 1.3 (1.0-2.1); ALT/SGPT 24 U/L (9-52); AST/SGOT 25 U/L (14-36); BLOOD UREA NITROGEN 10 mg/dl (7-17); CALCIUM 8.9 mg/dL (8.4-10.2); GFR AFRICAN-AMERICAN > 60; GFR NON-AFRICAN AMERICAN > 60; LIPASE 76 U/L (23-300)
[2017-11-08] MEDS ORDERED: Alum-Mag Hydrox-Simethicone Susp (30 mL) PO ONE (04:49)
[2017-11-08] MEDS ORDERED: Alum-Mag Hydrox-Simethicone Susp (30 mL) ONE (04:52)
--- NOTE | 2017-11-08 05:34 | ED PDOC ---
HPI: Abdomen Time Seen by Provider: 11/08/17 01:50 Chief Complaint (Nursing): Abdominal Pain History Per: Patient History/Exam Limitations: no limitations Onset/Duration Of Symptoms: Days Current Symptoms Are (Timing): Still Present Location Of Pain/Discomfort: Epigastric, Periumbilical Additional Complaint(s): Patient returns to ER for nausea, vomiting, and abdominal pain, states she felt better upon discharge yesterday but pain returned today and was associated with multiple rounds of non-bloody, non-bilious vomiting. No urinary symptoms, no bowel movement today. No fevers or chills. Past Medical History Reviewed: Historical Data, Nursing Documentation, Vital Signs Vital Signs: Last Vital Signs Temp 98.3 F 11/08/17 07:30 Pulse 60 11/08/17 07:30 Resp 19 11/08/17 07:30 BP 128/75 11/08/17 07:30 Pulse Ox 100 11/08/17 11:02 - Medical History PMH: No Chronic Diseases - Family History Family History: States: Unknown Family Hx - Home Medications Home Medications: Ambulatory Orders Medication Instructions Recorded Dicyclomine [Bentyl] 20 mg PO BID PRN #30 tab 10/26/16 Ondansetron ODT [Zofran ODT] 1 odt PO Q6 PRN #20 odt 10/26/16 Amoxicillin/Clavulanate [Augmentin 1 tab PO BID #14 tab 11/05/16 875 MG-125 MG] Ibuprofen [Motrin] 600 mg PO Q8 PRN #21 tab 11/05/16 Famotidine [Pepcid] 20 mg PO Q12 #20 tab 06/12/17 Ondansetron [Zofran] 4 mg PO Q8H #10 tab 06/12/17 Omeprazole Magnesium [Prilosec Otc] 20 mg PO DAILY #7 tablet. 06/15/17 Naproxen [Naprosyn] 500 mg PO BID PRN #14 tablet 11/07/17 Cyclobenzaprine [Cyclobenzaprine 10 mg PO BID #15 tab 11/08/17 HCl] Ondansetron ODT [Zofran ODT] 4 mg PO Q8 PRN #8 odt 11/08/17 - Allergies Allergies/Adverse Reactions: Allergies Allergy/AdvReac Type Severity Reaction Status Date / Time latex Allergy ITCHING Verified 11/08/17 02:09 Review of Systems ROS Statement: Except As Marked, All Systems Reviewed And Found Negative Gastrointestinal: Positive for: Nausea, Vomiting, Abdominal Pain Physical Exam - Reviewed Nursing Documentation Reviewed: Yes Vital Signs Reviewed: Yes - Physical Exam Appears: Positive for: Well, Non-toxic, No Acute Distress Head Exam: Positive for: ATRAUMATIC, NORMAL INSPECTION, NORMOCEPHALIC Skin: Positive for: Normal Color, Warm, DRY Eye Exam: Positive for: EOMI, Normal appearance, PERRL ENT: Positive for: Normal ENT Inspection Neck: Positive for: Normal, Painless ROM Cardiovascular/Chest: Positive for: Regular Rate, Rhythm Respiratory: Positive for: CNT, Normal Breath Sounds Gastrointestinal/Abdominal: Positive for: Normal Exam, Bowel Sounds, Soft, Tenderness. Negative for: Organomegaly, Mass, Distended, Guarding (Minimal tenderness in arya-umbilical region), Rebound Back: Positive for: Normal Inspection Extremity: Positive for: Normal ROM Neurologic/Psych: Positive for: Alert, Oriented - Laboratory Results Result Diagrams: 11/08/17 03:32 11/08/17 03:32 - ECG O2 Sat by Pulse Oximetry: 100 Pulse Ox Interpretation: Normal Medical Decision Making Medical Decision Makin A/P: Pt. returning for abdominal pain and vomiting -U/S and CT yesterday showed no sigificant abnormalities -ddx: gastritis v. colonic spasm. v. gas -will provide symptomatic care and re-eval 0400 -Patient's pain improving, however still having some nausea, will give meds -Labs wnl 0700 -Patient walking around ED without difficulty -Still having some pain, will give muscle relaxant and simethicone -Will endorse to Dr. Cullen pending final eval Disposition - Clinical Impression Clinical Impression: Abdominal cramps, Cannabis abuse - Disposition Referrals: Ranjith Nolen MD [Staff Provider] - Disposition: Routine/Home Disposition Time: 19:22 Condition: IMPROVED Additional Instructions: Stop using marijuana. Follow up with your PCP in 2-3 days. Return for worsening. Prescriptions: Cyclobenzaprine [Cyclobenzaprine HCl] 10 mg PO BID #15 tab Ondansetron ODT [Zofran ODT] 4 mg PO Q8 PRN #8 odt PRN Reason: Nausea/Vomiting Instructions: Acute Abdomen (Belly Pain), Marijuana Use and Addiction
[2017-11-08 06:06] LABS: SQUAMOUS EPITHIAL < 1 /hpf (0-5); URINE BILIRUBIN NEGATIVE (NEGATIVE); URINE BLOOD MODERATE (NEGATIVE); URINE CLARITY CLEAR (Clear); URINE COLOR STRAW (YELLOW); URINE GLUCOSE (UA) NEG (Normal); URINE LEUKOCYTE ESTERASE NEG Leu/uL (Negative); URINE PROTEIN NEGATIVE (NEGATIVE); URINE UROBILINOGEN 0.2-1.0 mg/dL (0.2-1.0)
[2017-11-08 06:58] LABS: BARBITURATES, UR NEGATIVE (NEGATIVE); BENZODIAZEPINES, UR NEGATIVE (NEGATIVE); OPIATES, UR NEGATIVE (NEGATIVE); PHENCYCLIDINE, UR NEGATIVE (NEGATIVE)
[2017-11-08] MEDS ORDERED: Simethicone 80 mg Chewtab PO STA (07:00)
--- NOTE | 2017-11-08 07:25 | ED PDOC ---
- Laboratory Results Result Diagrams: 11/08/17 03:32 11/08/17 03:32 - ECG O2 Sat by Pulse Oximetry: 100 (RA) Pulse Ox Interpretation: Normal - Progress Re-evaluation Time: 11:00 Condition: Re-examined, Improved Medical Decision Making Medical Decision Making: Time: 7:00 --Patient signed over to this provider by Dr. Rivers, pending reevaluation. Scribe Attestation: Documented by Marily Gordon, acting as a scribe for Barb Cullen MD Provider Scribe Attestation: All medical record entries made by the Scribe were at my direction and personally dictated by me. I have reviewed the chart and agree that the record accurately reflects my personal performance of the history, physical exam, medical decision making, and the department course for this patient. I have also personally directed, reviewed, and agree with the discharge instructions and disposition Disposition - Clinical Impression Clinical Impression: Abdominal cramps, Cannabis abuse - POA Present On Arrival: None - Disposition Referrals: Ranjith Nolen MD [Staff Provider] - Disposition: Routine/Home Disposition Time: 11:01 Condition: IMPROVED Additional Instructions: Stop using marijuana. Follow up with your PCP in 2-3 days. Return for worsening. Prescriptions: Cyclobenzaprine [Cyclobenzaprine HCl] 10 mg PO BID #15 tab Ondansetron ODT [Zofran ODT] 4 mg PO Q8 PRN #8 odt PRN Reason: Nausea/Vomiting Instructions: Acute Abdomen (Belly Pain), Marijuana Use and Addiction
[2017-11-08 07:31] VITALS: BP 128/75; PULSE 60; RESP 19; TEMP 98.3
== END 2017-11-08 11:47 | disposition home or self-care (01) ==
LOC: H.ER 01:43
DX: R10.13 Epigastric pain (principal); F12.10 Cannabis abuse, uncomplicated
CPT/HCPCS: 80053; 81003; 81025; 83690; 85025; 96374; 96375; 96376; 99284; C9113; G0480; J1885; J2405

== ENCOUNTER 2018-06-13 10:13 | Emergency (ER) | payer BC ==
[2018-06-13 10:23] VITALS: BMI 23.5
[2018-06-13 10:25] VITALS: RESP 18
[2018-06-13] MEDS ORDERED: Sodium Chloride 0.9% 1,000 ML IV STA (11:06)
[2018-06-13 11:27] LABS: BASO # 0.1 K/uL (0.0-0.2); BASO % 0.5 % (0.0-2.0); EOS % 0.5 % (0.0-4.0); LYMPH # 1.6 K/uL (1.0-4.3); LYMPH % 16.2 % (20.0-40.0); MEAN CELL VOLUME 86.8 fl (81.0-99.0); MEAN CORPUSCULAR HEMOGLOBIN 28.6 pg (27.0-31.0); MONO # 0.6 K/uL (0.0-0.8); MONO % 6.1 % (0.0-10.0); NEUT # 7.7 K/uL (1.8-7.0); NEUT % 76.7 % (50.0-75.0); NRBC % 0.2 % (0.0-0.0); RBC 4.55 Mil/uL (3.80-5.20); RED CELL DISTRIBUTION WIDTH 13.3 % (11.5-14.5)
--- NOTE | 2018-06-13 11:27 | ED PDOC ---
HPI: General Adult Time Seen by Provider: 06/13/18 10:35 Chief Complaint (Nursing): Abdominal Pain History Per: Patient Additional Complaint(s): Pt. states for the past 4 days she's had N/V/D without any abdominal pain. She went to [facility] today for evaluation and was advised to come to ED for r/o appendicitis. Pt. is concerned about getting multiple CT's as she had a CT abd/pelvis done on 10/2017. Denies fever, chills, recent travel, melena, hematochezia, BRBPR, previous abdominal surgeries, abdominal pain. Past Medical History Reviewed: Historical Data, Nursing Documentation, Vital Signs Vital Signs: Last Vital Signs Temp 98.2 F 06/13/18 10:24 Pulse 84 06/13/18 10:24 Resp 18 06/13/18 10:24 BP 129/69 06/13/18 10:24 Pulse Ox 98 06/13/18 10:32 - Family History Family History: States: No Known Family Hx - Home Medications Home Medications: Ambulatory Orders Medication Instructions Recorded Dicyclomine [Bentyl] 20 mg PO BID PRN #30 tab 10/26/16 Ondansetron ODT [Zofran ODT] 1 odt PO Q6 PRN #20 odt 10/26/16 Amoxicillin/Clavulanate [Augmentin 1 tab PO BID #14 tab 11/05/16 875 MG-125 MG] Ibuprofen [Motrin] 600 mg PO Q8 PRN #21 tab 11/05/16 Famotidine [Pepcid] 20 mg PO Q12 #20 tab 06/12/17 Ondansetron [Zofran] 4 mg PO Q8H #10 tab 06/12/17 Omeprazole Magnesium [Prilosec Otc] 20 mg PO DAILY #7 tablet. 06/15/17 Naproxen [Naprosyn] 500 mg PO BID PRN #14 tablet 11/07/17 Cyclobenzaprine [Cyclobenzaprine 10 mg PO BID #15 tab 11/08/17 HCl] Ondansetron ODT [Zofran ODT] 4 mg PO Q8 PRN #8 odt 11/08/17 Ondansetron ODT [Zofran ODT] 4 mg PO TID #10 odt 06/13/18 - Allergies Allergies/Adverse Reactions: Allergies Allergy/AdvReac Type Severity Reaction Status Date / Time latex Allergy ITCHING Verified 06/13/18 10:32 Review of Systems ROS Statement: Except As Marked, All Systems Reviewed And Found Negative Gastrointestinal: Positive for: Nausea, Vomiting, Diarrhea Physical Exam - Physical Exam Appears: Positive for: Well, Non-toxic, No Acute Distress Skin: Positive for: Normal Color, Warm. Negative for: Rash Eye Exam: Positive for: Normal appearance Cardiovascular/Chest: Positive for: Regular Rate, Rhythm Respiratory: Positive for: Normal Breath Sounds Gastrointestinal/Abdominal: Positive for: Normal Exam, Bowel Sounds, Soft, Other (negative psoas and obturator sign). Negative for: Tenderness (to deep palpa tion), Guarding Back: Negative for: L CVA Tenderness, R CVA Tenderness Neurologic/Psych: Positive for: Alert, Oriented (x3) - Laboratory Results Result Diagrams: 06/13/18 11:15 06/13/18 11:15 - ECG O2 Sat by Pulse Oximetry: 98 - Progress ED Course And Treament: Labs, IV NS bolus, zofran 4mg IV ordered. Re-evaluation Time: 13:14 (States she is feeling much better but is hungry. Reports no abdominal pain while in ED. Advised to f/u with PMD for further evaluation but is to return to ED immediately if symptoms worsen. ) Condition: Re-examined, Improved Disposition - Clinical Impression Clinical Impression: Gastroenteritis - Patient ED Disposition Is Patient to be Admitted: No - Disposition Referrals: Destin Bell [Outside] Disposition: Routine/Home Disposition Time: 13:15 Condition: IMPROVED Additional Instructions: FOLLOW UP WITH PMD FOR FURTHER EVALUATION RETURN TO ED IMMEDIATELY IF SYMPTOMS WORSEN NANCY DELUCA, thank you for letting us take care of you today. Your provider was Caden Maloney MD and you were treated for ABD PAIN/VOMITING. The emergency medical care you received today was directed at your acute symptoms. If you were prescribed any medication, please fill it and take as directed. It may take several days for your symptoms to resolve. Return to the Emergency Department if your symptoms worsen, do not improve, or if you have any other problems. Please contact your doctor or call one of the physicians/clinics you have been referred to that are listed on the Patient Visit Information form that is included in your discharge packet. Bring any paperwork you were given at [facility] with you along with any medications you are taking to your follow up visit. Our treatment cannot replace ongoing medical care by a primary care provider outside of the emergency department. Thank you for allowing the [facility] team to be part of your care today. If you had an X-Ray or CT scan: A Radiologist will review the ED reading if any change in treatment is needed we will contact you. If you had a blood, urine, or wound culture: It will take several days for the results, if any change in treatment is needed we will contact you. If you had an STI test: It will take 48 hours for the results. Please call after 1 week if you have not heard back. Prescriptions: Ondansetron ODT [Zofran ODT] 4 mg PO TID #10 odt Instructions: Gastroenteritis (ED) Forms: [email or web address] (Serbian), [facility] ED School/Work Excuse
[2018-06-13 11:34] LABS: ALB/GLOB RATIO 1.3 (1.0-2.1); ALBUMIN 4.5 g/dL (3.5-5.0); ALT/SGPT 23 U/L (9-52); AST/SGOT 27 U/L (14-36); BLOOD UREA NITROGEN 10 mg/dl (7-17); CALCIUM 9.2 mg/dL (8.4-10.2); GFR NON-AFRICAN AMERICAN > 60; LIPASE 41 U/L (23-300)
[2018-06-13 11:37] LABS: SQUAMOUS EPITHIAL 4 /hpf (0-5); URINE BACTERIA RARE (<OCC); URINE BILIRUBIN NEGATIVE (NEGATIVE); URINE BLOOD NEGATIVE (NEGATIVE); URINE CLARITY CLOUDY (Clear); URINE COLOR AMBER (YELLOW); URINE GLUCOSE (UA) NEG (NEGATIVE); URINE LEUKOCYTE ESTERASE TRACE Leu/uL (Negative); URINE PROTEIN 30 mg/dL (NEGATIVE)
[2018-06-13 13:36] VITALS: BP 124/76; PULSE 75; TEMP 97.6; O2SAT 99
== END 2018-06-13 13:37 | disposition home or self-care (01) ==
LOC: H.ER 10:13
DX: K52.9 Noninfective gastroenteritis and colitis, unspecified (principal)
CPT/HCPCS: 80053; 81003; 81025; 83690; 85025; 87086; 96374; 99284; J2405; J7030

== ENCOUNTER 2018-09-01 14:26 | Emergency (ER) | payer BC ==
[2018-09-01 14:26] VITALS: BMI 23.5
[2018-09-01 14:40] VITALS: RESP 18; O2SAT 100
[2018-09-01] MEDS ORDERED: Sodium Chloride 0.9% 1,000 ML IV STA (15:21)
--- NOTE | 2018-09-01 15:44 | ED PDOC ---
HPI: Abdomen Time Seen by Provider: 09/01/18 14:43 Chief Complaint (Nursing): Abdominal Pain Chief Complaint (Provider): Abdominal Pain History Per: Patient History/Exam Limitations: no limitations Onset/Duration Of Symptoms: Hrs Additional Complaint(s): Patient is a 23 y/o female with no significant PMHx who presents to the ED for evaluation of diffuse abdominal pain onset this morning. Furthermore, patient complains of nausea and non-bloody, non-bilious episodes of vomiting. Patient also states she is now unable to tolerate PO. Patient reports she had a couple of alcoholic beverages last night but her symptoms feel very different from that of a hangover. Patient denies fever, cough, and chest pain. PCP: None Provided Past Medical History Reviewed: Historical Data, Nursing Documentation, Vital Signs Vital Signs: Last Vital Signs Temp 97.6 F 09/01/18 14:36 Pulse 80 09/01/18 14:36 Resp 18 09/01/18 14:36 BP 123/84 09/01/18 14:36 Pulse Ox 100 09/01/18 14:36 - Medical History PMH: No Chronic Diseases - Surgical History Surgical History: No Surg Hx - Family History Family History: States: Unknown Family Hx - Social History Alcohol: Social - Home Medications Home Medications: Ambulatory Orders Medication Instructions Recorded Dicyclomine [Bentyl] 20 mg PO BID PRN #30 tab 10/26/16 Ondansetron ODT [Zofran ODT] 1 odt PO Q6 PRN #20 odt 10/26/16 Amoxicillin/Clavulanate [Augmentin 1 tab PO BID #14 tab 11/05/16 875 MG-125 MG] Ibuprofen [Motrin] 600 mg PO Q8 PRN #21 tab 11/05/16 Famotidine [Pepcid] 20 mg PO Q12 #20 tab 06/12/17 Ondansetron [Zofran] 4 mg PO Q8H #10 tab 06/12/17 Omeprazole Magnesium [Prilosec Otc] 20 mg PO DAILY #7 tablet. 06/15/17 Naproxen [Naprosyn] 500 mg PO BID PRN #14 tablet 11/07/17 Cyclobenzaprine [Cyclobenzaprine 10 mg PO BID #15 tab 11/08/17 HCl] Ondansetron ODT [Zofran ODT] 4 mg PO Q8 PRN #8 odt 11/08/17 Ondansetron ODT [Zofran ODT] 4 mg PO TID #10 odt 06/13/18 - Allergies Allergies/Adverse Reactions: Allergies Allergy/AdvReac Type Severity Reaction Status Date / Time latex Allergy ITCHING Verified 06/13/18 10:32 Review of Systems ROS Statement: Except As Marked, All Systems Reviewed And Found Negative Constitutional: Negative for: Fever Cardiovascular: Negative for: Chest Pain Respiratory: Negative for: Cough Gastrointestinal: Positive for: Nausea, Vomiting (non-blood, non-bilious), Abdominal Pain (diffuse) Physical Exam - Reviewed Nursing Documentation Reviewed: Yes Vital Signs Reviewed: Yes - Physical Exam Appears: Positive for: No Acute Distress Head Exam: Positive for: ATRAUMATIC, NORMAL INSPECTION, NORMOCEPHALIC Skin: Positive for: Normal Color, Warm, DRY Eye Exam: Positive for: EOMI, Normal appearance, PERRL Neck: Positive for: Normal, Painless ROM, Supple Cardiovascular/Chest: Positive for: Regular Rate, Rhythm. Negative for: Murmur Respiratory: Positive for: Normal Breath Sounds. Negative for: Respiratory Distress Gastrointestinal/Abdominal: Positive for: Soft, Tenderness (mild diffuse) Back: Positive for: Normal Inspection. Negative for: L CVA Tenderness, R CVA Tenderness, Vertebral Tenderness Extremity: Positive for: Normal ROM. Negative for: Pedal Edema, Deformity Neurological/Psych: Positive for: Alert, Oriented (x3) - Laboratory Results Result Diagrams: 09/01/18 15:47 09/01/18 15:47 - ECG O2 Sat by Pulse Oximetry: 100 (RA) Pulse Ox Interpretation: Normal Medical Decision Making Medical Decision Making: Time: 1510 Impression: Abdominal Pain Plan: CMP Lipase Urine CBC Obstructive Series [Rad] IV Fluids Pepcid 20 mg IVP Zofran 4 mg IVP UA Reassessment, pt. still with abd. pain. Re-exam, periumbilical and right lower and mid abdominal tenderness. CT abd/pelvis ordered. Nausea returned, IV Reglan given. Pt. endorsed to [facility] 8pm, pending CT. Time: 161 FINDINGS: CHEST: Lungs: Clear. Cardiovascular: Normal size heart. No pulmonary vascular congestion. No aortic atherosclerotic calcification present Pleura: No pleural fluid. No pneumothorax. Other findings: Left nipple ornamentation. ABDOMEN AND PELVIS: Bowel: Prominent amount a left colic stool. Unremarkable bowel gas pattern. No evidence of mechanical obstruction. Free air: None. Bones: Unremarkable. Other findings: None. IMPRESSION: Unremarkable radiographs of chest and abdomen. No evidence of mechanical bowel obstruction. Prominent amount of left colonic stool. Scribe Attestation: Documented by Ronnie Fuller, acting as a scribe Laura Perea PA-C. Provider Scribe Attestation: All medical record entries made by the Scribe were at my direction and personally dictated by me. I have reviewed the chart and agree that the record accurately reflects my personal performance of the history, physical exam, medical decision making, and the department course for this patient. I have also personally directed, reviewed, and agree with the discharge instructions and disposition. Disposition - Clinical Impression Clinical Impression: Abdominal pain in female - Patient ED Disposition Is Patient to be Admitted: Transfer of Care ([facility] pending ct) - Disposition Disposition Time: 20:05 Condition: STABLE Forms: [employer] (Azerbaijani)
[2018-09-01 15:46] LABS: SQUAMOUS EPITHIAL 4 /hpf (0-5); URINE BACTERIA RARE (<OCC); URINE BILIRUBIN NEGATIVE (NEGATIVE); URINE BLOOD LARGE (NEGATIVE); URINE CLARITY CLOUDY (Clear); URINE COLOR YELLOW (YELLOW); URINE GLUCOSE (UA) NEG (NEGATIVE); URINE LEUKOCYTE ESTERASE MOD Leu/uL (Negative); URINE PROTEIN 30 mg/dL (NEGATIVE); URINE UROBILINOGEN 0.2-1.0 mg/dL (0.2-1.0)
[2018-09-01 16:06] LABS: ALB/GLOB RATIO 1.5 (1.0-2.1); ALBUMIN 4.9 g/dL (3.5-5.0); ALT/SGPT 22 U/L (9-52); AST/SGOT 25 U/L (14-36); BLOOD UREA NITROGEN 10 mg/dl (7-17); CALCIUM 9.6 mg/dL (8.4-10.2); GFR NON-AFRICAN AMERICAN > 60; LIPASE 56 U/L (23-300)
[2018-09-01 16:14] LABS: BASO % 0.1 % (0.0-2.0); EOS % 0.1 % (0.0-4.0); LYMPH # 0.5 K/uL (1.0-4.3); LYMPH % 2.5 % (20.0-40.0); MEAN CELL VOLUME 85.8 fl (81.0-99.0); MEAN CORPUSCULAR HEMOGLOBIN 27.7 pg (27.0-31.0); MEAN CORPUSCULAR HGB CONC 32.3 g/dL (33.0-37.0); MEAN PLATELET VOLUME 9.5 fl (7.2-11.7); MONO # 0.7 K/uL (0.0-0.8); MONO % 3.3 % (0.0-10.0); NEUT # 19.3 K/uL (1.8-7.0); PLATELET COUNT 265 K/uL (130-400); RBC 5.07 Mil/uL (3.80-5.20); WHITE BLOOD COUNT 20.6 K/uL (4.8-10.8)
--- NOTE | 2018-09-01 16:15 | RAD ---
Date of service: 09/01/2018 PROCEDURE: Radiographs of the chest and abdomen (obstructive series) HISTORY: nausea/vomiting COMPARISON: No prior. TECHNIQUE: AP radiograph of the chest, with upright and supine radiographs of the abdomen. 3 views obtained. FINDINGS: CHEST: Lungs: Clear. Cardiovascular: Normal size heart. No pulmonary vascular congestion. No aortic atherosclerotic calcification present Pleura: No pleural fluid. No pneumothorax. Other findings: Left nipple ornamentation. ABDOMEN AND PELVIS: Bowel: Prominent amount a left colic stool. Unremarkable bowel gas pattern. No evidence of mechanical obstruction. Free air: None. Bones: Unremarkable. Other findings: None. IMPRESSION: Unremarkable radiographs of chest and abdomen. No evidence of mechanical bowel obstruction. Prominent amount of left colonic stool.
[2018-09-01] MEDS ORDERED: Iohexol 240 (50 ml) PO ONE (16:57)
[2018-09-01 17:18] LABS: BANDS 3 % (0-2); LYMPHOCYTE 3 % (20-50); MONOCYTE 4 % (0-10); NEUTROPHIL 90 % (42-75); PLATELET ESTIMATE NORMAL (NORMAL); TOTAL CELLS COUNTED 100
[2018-09-01 17:19] LABS: TOXIC GRANULATION PRESENT
[2018-09-01] MEDS ORDERED: Iohexol 300 100 ML IJ ONE (18:21)
[2018-09-01] MEDS ORDERED: Sodium Chloride 0.9% 50 ML IV ONE (18:21)
--- NOTE | 2018-09-01 20:49 | ED PDOC ---
- Laboratory Results Result Diagrams: 09/01/18 15:47 09/01/18 15:47 Lab Results: Total Bilirubin 0.4 mg/dl (0.2-1.3) 09/01/18 15:47 AST 25 U/L (14-36) 09/01/18 15:47 ALT 22 U/L (9-52) 09/01/18 15:47 Alkaline Phosphatase 110 U/L (38-126) 09/01/18 15:47 Total Protein 8.2 G/DL (6.3-8.2) 09/01/18 15:47 Albumin 4.9 g/dL (3.5-5.0) 09/01/18 15:47 Globulin 3.4 gm/dL (2.2-3.9) 09/01/18 15:47 Albumin/Globulin Ratio 1.5 (1.0-2.1) 09/01/18 15:47 Lipase 56 U/L (23-300) 09/01/18 15:47 Urine Color Yellow (YELLOW) 09/01/18 15:10 Urine Clarity Cloudy (Clear) 09/01/18 15:10 Urine pH 6.0 (5.0-8.0) 09/01/18 15:10 Ur Specific [place] 1.021 (1.003-1.030) 09/01/18 15:10 Urine Protein 30 mg/dL (NEGATIVE) 09/01/18 15:10 Urine Glucose (UA) Neg mg/dL (NEGATIVE) 09/01/18 15:10 Urine Ketones Negative mg/dL (NEGATIVE) 09/01/18 15:10 Urine Blood Large (NEGATIVE) 09/01/18 15:10 Urine Nitrate Negative (NEGATIVE) 09/01/18 15:10 Urine Bilirubin Negative (NEGATIVE) 09/01/18 15:10 Urine Urobilinogen 0.2-1.0 mg/dL (0.2-1.0) 09/01/18 15:10 Ur Leukocyte Esterase Mod Gina/uL (Negative) 09/01/18 15:10 Urine RBC (Auto) 53 /hpf (0-3) H 09/01/18 15:10 Urine Microscopic WBC 32 /hpf (0-5) H 09/01/18 15:10 Ur Squamous Epith Cells 4 /hpf (0-5) 09/01/18 15:10 Urine Bacteria Rare (<OCC) 09/01/18 15:10 - ECG O2 Sat by Pulse Oximetry: 100 (RA) Medical Decision Making Medical Decision Makin case endorsed to me by Lidia QUINTANILLA, pending CT results, re eval and dispo 2044 EXAM: CT Abdomen and Pelvis with IV contrast CLINICAL HISTORY: Abd pain TECHNIQUE: Axial computed tomography images of the abdomen and pelvis with intravenous contrast. 474.04 mGy-cm CONTRAST: With; [id number] 90ML COMPARISON: November 07, 2017 FINDINGS: LUNG BASES: The lung bases appear clear. No pleural effusions are seen. LIVER: Unremarkable. GALLBLADDER AND BILE DUCTS: The gallbladder appears within normal limits. No radioopaque gallstones are seen. No biliary ductal dilatation is evident. PANCREAS: Unremarkable. SPLEEN: Unremarkable. ADRENAL GLANDS: Unremarkable. KIDNEYS, URETERS, AND BLADDER: The kidneys appear within normal limits. There is no hydronephrosis or hydroureter. No urinary calculi are seen. STOMACH AND BOWEL: Unremarkable appearance of the stomach and bowel. No evidence of bowel obst ruction. No evidence suggesting enteritis or colitis. APPENDIX: No evidence of acute appendicitis on CT examination. PERITONEUM: No free fluid. No free air. LYMPH NODES: No lymphadenopathy is evident. REPRODUCTIVE: Unremarkable as visualized. VASCULATURE: No evidence of abdominal aortic aneurysm. BONES: No aggressive appearing osseous lesion. No acute osseous pathology evident. IMPRESSION: No acute intra-abdominal or pelvic abnormality. Electronically signed on Sep 01, 2018 7:54:58 PM EDT by: [id number] pt seen by me, reports feeling better, pain, nausea and vomiting have resolved, abdomen is soft and non tender, WBC 20.6 pt with moderate urine leuk and 32 WBC, discussed with Dr. Arias, recommends admission [address] Harish Reece who accepts pt for IV antibiotics and observation discussed results, diagnosis, treatment and plan for observation with pt who is understanding, but does not want to stay, she wants to sign out AMA Discussed with pt risks of leaving, she continues to deny staying and agrees to signing out AMA urine culture sent, started pt on Keflex Disposition Counseled Patient/Family Regarding: Studies Performed, Diagnosis, Need For Followup, Rx Given - Clinical Impression Clinical Impression: UTI (urinary tract infection) - POA Present On Arrival: None - Disposition Referrals: Rico Jacobson MD [Staff Provider] - Ranjith Nolen MD [Staff Provider] - Disposition: AGAINST MEDICAL ADVICE Disposition Time: 21:40 Condition: STABLE Additional Instructions: Return to ED for new or worsening symptoms. Take medications as prescribed. Follow up with your primary doctor [place]. The emergency medical care you received today was directed at your acute symptoms. If you were prescribed any medication, please fill it and take as directed. It may take several days for your symptoms to resolve. Return to the Emergency Department if your symptoms worsen, do not improve, or if you have any other problems. Please contact your doctor in 2 days for re-evaluation and follow up / or call one of the physicians/clinics you have been referred to that are listed on the Patient Visit Information form that is included in your discharge packet. Bring any paperwork you were given at discharge with you along with any medications you are taking to your follow up visit. Our treatment cannot replace ongoing medical care by a primary care provider (PCP) outside of the emergency department. Prescriptions: Cephalexin [Keflex] 500 mg PO TID 10 Days #30 capsule Ondansetron ODT [Zofran ODT] 4 mg PO TID PRN #12 odt PRN Reason: Nausea/Vomiting Instructions: Urinary Tract Infections in Adults, Nausea and Vomiting, Adult (DC) Forms: [employer] (Hungarian) Print Language: CZECH
[2018-09-01 21:43] VITALS: BP 118/80; PULSE 84; TEMP 98.2
--- NOTE | 2018-09-02 10:55 | CT ---
Date of service: 09/01/2018 PROCEDURE: CT abdomen and pelvis HISTORY: Abdominal pain (periumbilical) COMPARISON: Comparison made with prior CT scan of the abdomen pelvis 11/07/2017. TECHNIQUE: Contiguous axial images of the abdomen and pelvis performed following oral and intravenous injection of approximately 90 cc Omnipaque 300 contrast material. Additional 2D sagittal and coronal reformats generated. Radiation dose: Total exam DLP = 474.04 mGy-cm. This CT exam was performed using one or more of the following dose reduction techniques: Automated exposure control, adjustment of the mA and/or kV according to patient size, and/or use of iterative reconstruction technique. FINDINGS: LOWER THORAX: Heart size is within range of normal. No significant pericardial effusion. There is a tiny hiatal hernia. Lung bases clear without focal consolidation. No effusion or basilar pneumothorax. LIVER: Liver exhibits normal size. Mild diffuse fatty hepatic infiltration. No obvious hepatic mass collection or calcification. Portal and splenic veins are opacified.. GALLBLADDER AND BILE DUCTS: Gallbladder is physiologically distended. No evidence of intraluminal gallbladder calculi. PANCREAS: Unremarkable. No mass. No ductal dilatation. SPLEEN: Unremarkable. No splenomegaly. ADRENALS: No adrenal lesions. KIDNEYS AND URETERS: Kidneys demonstrate relatively symmetric nephrograms. No evidence of nephrolithiasis or hydronephrosis. BLADDER: Urinary bladder is incompletely distended which part accounts for slight thick-walled appearance. Correlation with urinalysis recommended to exclude cystitis. REPRODUCTIVE: Uterus appears unremarkable.. As mentioned below, multiple nondistended fluid-filled loops of small bowel in the right aspect of the pelvis however possibility of a concomitant small right-sided adnexal cyst cannot be completely excluded. APPENDIX: The appendix is not seen with complete certainty however what may represent a normal tortuous appendix is best seen on coronal sequence image number [id number]. No evidence to suggest acute appendicitis. BOWEL: Evaluation of the bowel is somewhat limited due to incomplete opacification. The stomach is distended with oral contrast material and air. Visualized loops of small bowel exhibit normal contour and caliber. No evidence of acute mechanical small bowel obstruction. Note that PERITONEUM: Unremarkable. No fluid collection. No free air. Tiny fat containing umbilical hernia. LYMPH NODES: Unremarkable. No enlarged lymph nodes. VASCULATURE: Unremarkable. No aortic aneurysm. No aortic atherosclerotic calcification or mural plaque present. BONES: No fracture or destructive lesion. OTHER FINDINGS: None. IMPRESSION: No acute intra abdominal pathology. Note however that the possibility of a small right-sided adnexal cyst cannot be completely excluded given the presence of multiple nondistended fluid-filled loops of small bowel in the right aspect of the pelvis. Mild urinary bladder wall thickening in part due to incomplete distention however correlation with urinalysis recommended to exclude cystitis. Mild fatty hepatic infiltration.
== END 2018-09-01 21:42 | disposition left against medical advice (07) ==
LOC: H.ER 14:26
DX: N39.0 Urinary tract infection, site not specified (principal)
CPT/HCPCS: 74022; 74177; 80053; 81003; 81025; 83690; 85025; 87086; 87181; 96361; 96374; 96375; 99285; J1885; J2270; J2405; J2765; J7030; Q9966; Q9967